=== PATIENT | male | born 2005 | race Two or more races ===

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

== ENCOUNTER 2025-02-01 12:14 | Emergency (ER) | payer OTHER, SELFPAY ==
[2025-02-01 12:43] VITALS: BP 119/77; PULSE 67; RESP 18; TEMP 36.5; O2SAT 96; BMI 40.6
--- NOTE | 2025-02-01 13:01 | XR_ITS ---
Examination: CT abdomen and pelvis without contrast. Coronal 3-D reconstructions. Sagittal 2-D reconstructions. Date and time of exam:February 01, 2025, 1427 hours COMPARISON: January 09, 2025 INDICATIONS: Right-sided flank pain with difficulty urinating beginning this morning, minimal left hydronephrosis 1.6mm distal left ureterovesical junction calculus on CT stone study December 30, 2024 CTDI: vol (mGy): 15 DLP: (mGycm): 1102 Technique: Axial images of the abdomen have been obtained, 3 mm slice thickness Intravenous contrast material has not been administered. Low dose protocols were performed. One or more of the following dose reduction techniques were used; automated exposure control, adjustment of the mA and/or KV according to patient size, use of iterative reconstruction technique. Findings: No focal liver or splenic lesions No gallstones No pancreatic or adrenal mass Bilateral 1 to 2 mm renal calculi Aorta normal size Normal appendix No bowel obstruction No hydronephrosis 1.6 mm calculus now projects in the urinary bladder IMPRESSION: 1. 0.6 mm calculus now projects in the urinary bladder No hydronephrosis
--- NOTE | 2025-02-01 13:01 | PD.EDRME ---
Rapid Medical Screening Exam RME Arrival date/time: 02/01/25 12:14 19-year-old male presents to the Emergency Department today for complaint of right flank pain Chief Complaint: Abdominal Pain Vital signs: Vital Signs Temperature 97.7 F 02/01/25 12:43 Pulse Rate 67 02/01/25 12:43 Respiratory Rate 18 02/01/25 12:43 Blood Pressure 119/77 02/01/25 12:43 Pulse Oximetry (%) 96 02/01/25 12:43 Oxygen Delivery Method Room Air 02/01/25 12:43
[2025-02-01] MEDS: KETOROLAC INJ 30 MG/ML VIAL IM (13:06)
[2025-02-01 13:36] LABS: Collection Type, Urine Clean Catch
[2025-02-01 13:39] LABS: Basophils # (Auto) 0.1 Thou/mm3 (0.0-0.2); Basophils % (Auto) 1 % (0-2.5); Eosinophils # (Auto) 0.0 Thou/mm3 (0.0-0.5); Eosinophils % (Auto) 0 % (0-10); Hematocrit 44.3 % (41.0-53.0); Hemoglobin 14.3 g/dL (13.5-16.0); Immature Granulocytes Auto 0.03 Thou/mm3 (0.00-0.00); Lymphocytes # (Auto) 1.5 Thou/mm3 (1.0-5.0); Lymphocytes % (Auto) 13 % (10-50); Mean Corpuscular HGB Conc 32.3 g/dl (31.0-37.0); Mean Corpuscular Hemoglobin 28.1 pg (25.0-35.0); Mean Corpuscular Volume 87 fL (80-100); Monocytes # (Auto) 0.6 Thou/mm3 (0.0-0.8); Monocytes % (Auto) 5 % (0-12); Neutrophils # (Auto) 9.5 Thou/mm3 (1.8-7.7); Neutrophils % (Auto) 81 % (37-80); Nucleated Red Blood Cell # 0.00 Thou/mm3 (0.00-0.00); Nucleated Red Blood Cell % 0 /100 WBC (0); Platelet Count 243 Thou/mm3 (140-440); RDW Standard Deviation 42.2 fL (35.1-43.9); Red Blood Count 5.09 Miln/mm3 (4.50-5.90); White Blood Count 11.7 Thou/mm3 (4.5-11.0)
[2025-02-01 13:40] LABS: Bilirubin,Urine Negative (Negative); Blood,Urine 3+ (Negative); Clarity,Urine Clear (Clear/Hazy); Color,Urine Yellow (Lt Yel-Yel); Culture Indicated,Urine Not Indicated; Glucose, Urine Negative (Negative); Ketones,Urine Negative (Negative); Leukocyte Esterase,Urine Negative (Negative); Nitrite,Urine Negative (Negative); PH,Urine 6.0 (5.0-7.0); Protein,Urine Trace (Neg - Trace); RBC,Urine 185 /hpf (0-3); Specific Gravity,Urine 1.022 (1.001-1.035); Squamous Epithelial Cell,Urine 1 /hpf (0-5); Urobilinogen,Urine Negative mg/dL (0.0-1.0); WBC,Urine 2 /hpf (0-5)
[2025-02-01 13:57] LABS: Alanine Aminotransferase 40 U/L (10-49); Albumin, Serum 4.8 gm/dL (3.5-5.0); Albumin/Globulin Ratio 2.3 (1.2-2.2); Alkaline Phosphatase 145 U/L (46-116); Anion Gap 8 (7-16); Aspartate Amino Transferase 27 U/L (0-34); BUN/Creatinine Ratio 6 Ratio (12-20); Bilirubin,Total 0.3 mg/dL (0.3-1.2); Blood Urea Nitrogen 7 mg/dL (9-23); Calcium 12.0 mg/dL (8.3-10.6); Calcium (Corrected) 12.0 mg/dL (8.5-10.1); Carbon Dioxide 25.9 mMol/L (20.0-31.0); Chloride 109 mMol/L (98-107); Creatinine (Component) 1.1 mg/dL (0.6-1.3); Estimated Creatinine Clearance 163.2 mL/min (>60); Globulin 2.1 gm/dL (2.3-3.5); Glucose 98 mg/dL (74-106); Lipase 31 U/L (12-53); Osmolality,Calculated 282 (275-295); Potassium 4.7 mMol/L (3.4-5.1); Sodium 143 mMol/L (136-145); Total Protein 6.9 gm/dL (5.7-8.2); eGFR > 60 See Note
--- NOTE | 2025-02-01 14:51 | PD.EDABDPN ---
ED Abdominal Pain RME/HPI General Chief Complaint: Abdominal Pain Stated complaint: R) SIDED ABD PAIN Time seen by provider: 02/01/25 14:50 Arrival date/time: 02/01/25 12:14 19-year-old male presents to the Emergency Department today for complaint of right flank pain Limitations: no limitations RME / HPI RME / HPI narrative: 02/01/25 12:14 19-year-old male presents to the Emergency Department today for complaint of right flank pain Related Data Previous Rx's ?Medication ?Instructions ?Recorded ibuprofen 100 mg/5 mL oral 500 mg (25 mL) PO QID #500 mL 07/05/18 suspension hydrocodone 5 mg-acetaminophen 325 1 tab PO TID #10 tabs 01/27/19 mg tablet ([place]) tamsulosin 0.4 mg capsule (Flomax) 0.4 mg PO QDAY #5 caps 01/27/19 lactulose 10 gram/15 mL (15 mL) 10 g (15 mL) PO BID PRN 07/20/20 oral solution constipation #600 mL ibuprofen 800 mg tablet 800 mg PO TID PRN pain #30 tabs 02/01/25 ondansetron 4 mg disintegrating 4 mg PO Q8H PRN nausea and 02/01/25 tablet vomiting #10 tabs Allergies Allergy/AdvReac Type Severity Reaction Status Date / Time No Known Allergies Allergy Verified 02/01/25 12:16 Review of Systems Review of Systems Systems Reviewed: All systems reviewed, normal except as documented Constitutional Constitutional: Reports system reviewed and no additional complaints, except as documented, Denies fever(s) and Denies headache(s) Eyes Eyes: Reports system reviewed and no additional complaints, except as documented and Denies blurry vision ENT Ears, Nose, Mouth, and Throat: Reports system reviewed and no additional complaints, except as documented, Denies headache(s), Denies nasal congestion and Denies nasal discharge Cardiovascular Cardiovascular: Reports system reviewed and no additional complaints, except as documented, Denies chest pain and Denies dyspnea Respiratory Respiratory: Reports system reviewed and no additional complaints, except as documented, Denies chest congestion, Denies cough and Denies dyspnea Gastrointestinal Gastrointestinal: Reports system reviewed and no additional complaints, except as documented and Reports abdominal pain Integumentary/Breasts Skin/Breast: Reports system reviewed and no additional complaints, except as documented and Denies rash Neurologic Neurologic: Reports system reviewed and no additional complaints, except as documented, Reports as per HPI and Denies headache(s) Past Medical History Past Medical History CARDIAC: Negative Cardiac Disorders or Congestive Heart Failure RESPIRATORY: Negative Chronic Obstructive Pulmonary Disease (COPD) or Asthma GENITOURINARY: Negative Renal Disease ENDOCRINE: Negative Diabetes Mellitus Type 1 or Diabetes Mellitus Type 2 HEMATOLOGIC: Negative Sickle Cell Disease Social History SMOKING STATUS: Never smoker SECOND HAND EXPOSURE: No ED Exam General Limitations: Present no limitations General appearance: Present alert and in no apparent distress Head Head exam: Present atraumatic Eye Eye exam: Present normal appearance, PERRL and EOMI ENT ENT exam: Present normal exam, normal oropharynx and mucous membranes moist Neck Neck exam: Present normal inspection, full ROM and trachea midline Chest Chest inspection: Present normal inspection and symmetric chest wall rise Respiratory Respiratory exam: Present normal lung sounds bilaterally Cardiovascular Cardiovascular exam: Present regular rate, normal rhythm and normal heart sounds Abdominal Exam Abdominal exam: Present soft and normal bowel sounds; Absent distention, tenderness, guarding, rebound or rigidity Extremities Exam Extremities exam: Present normal inspection and full ROM Back Exam Back exam: Present normal inspection and full ROM Neurological Exam Neurological exam: Present alert, oriented X3 and CN II-XII intact Psychiatric Psychiatric exam: Present normal affect and normal mood Skin Skin exam: Present warm, dry, intact and normal color Course Quality Measures none Orders Category Date Time Status CT abdomen pelvis wo con Stat Exams 02/01/25 13:01 Completed CBC Stat Lab 02/01/25 13:15 Completed Comprehensive Metabolic Panel Stat Lab 02/01/25 13:15 Completed Lipase Stat Lab 02/01/25 13:15 Completed UA, C/S IF [Urinalysis, C/S if Indicated] Stat Lab 02/01/25 13:26 Completed Ketorolac Inj [Toradol Inj] Med 02/01/25 13:01 Discontinued 30 mg IM X1 ONE Vital Signs Vital signs: Vital Signs Temperature 97.7 F 02/01/25 12:43 Pulse Rate 67 02/01/25 12:43 Respiratory Rate 18 02/01/25 12:43 Blood Pressure 119/77 02/01/25 12:43 Pulse Oximetry (%) 96 02/01/25 12:43 Oxygen Delivery Method Room Air 02/01/25 12:43 O2 saturation 96 on room air wnl Abdominal Pain MDM MDM Narrative MDM Narrative:: 19-year-old male presents to the Emergency Department today for complaint of right flank pain On exam patient well-appearing patient does not appear toxic no acute distress Lab work and imaging obtained consistent with kidney stone Patient discharged home in no distress to follow-up with primary care doctor in the next 24 to 48 hours and for any worsening symptoms to return to the ER immediately Patient data External records reviewed:: [facility] previous records Clinical information provided by:: patient Social determinants that could affect healthcare access:: none Patient has the following chronic illnesses:: None How is presenting disease/condition affected by chronic disease/condition?: caused by Evaluation data The following diagnostics were reviewed and interpreted by me:: lab results and radiology exam(s) Lab and/or radiology exams considered but not ordered:: Labs radiology obtained Interpretation Summary: Reviewed by me Medications / Prescriptions Medications or Prescriptions considered but not ordered:: Given Medication administrations:: Medication Administration History Discontinued Medications Ketorolac Tromethamine (Ketorolac Inj 30 Mg/Ml Vial) 30 mg IM X1 ONE Stop: 02/01/25 13:02 Last Admin: 02/01/25 13:06 Dose: 30 mg Documented By: OA Given Consultations Consultation(s) initiated? (list below): No Diagnosis Differential diagnosis abdominal pain: abdominal pain, acute appendicitis, pancreatitis and small bowel obstruction Most likely diagnosis given after review of the tests above:: Abdominal pain Admission Indicated Admission indicated?: not indicated Admission Request Was there a request for admission?: No Disposition Plan Disposition Plan: Discharge Discharge Attestation Discharge Attestation: The patient and all family members were given an opportunity to ask questions and understood the discharge instructions. Discharge instructions specifically effects, indications for sooner follow up or return to the emergency department, and the expected course of current diagnosis. Patient condition: Stable Discharge Plan Plan Patient Disposition: HOME (Self Care) Discharge Disposition comment: Stable Prescriptions/Referrals Prescriptions/Med Rec: New ibuprofen 800 mg tablet 800 mg PO TID PRN (Reason: pain) Qty: 30 0RF ondansetron 4 mg tablet,disintegrating 4 mg PO Q8H PRN (Reason: nausea and vomiting) Qty: 10 0RF No Action lactulose 10 gram/15 mL (15 mL) solution 10 g PO BID PRN (Reason: constipation) Qty: 600 0RF ibuprofen 100 mg/5 mL suspension 500 mg PO QID Qty: 500 0RF tamsulosin [Flomax] 0.4 mg capsule 0.4 mg PO QDAY Qty: 5 0RF hydrocodone-acetaminophen [[place]] 5-325 mg tablet 1 tab PO TID MDD 3 tabs Qty: 10 0RF Rx Instructions: NotToExceed APAP: 15 mg/kg OR 1000 mg/dose AND 4000 mg /24 hrs Referrals: Cora Schrader, SENIOR INSPECTOR [Primary Care Provider] - In 1 week Problem List Clinical Impression: Renal colic Patient/Caregiver Discharge Instructions Education Materials: ED Kidney Stone w/ Colic Additional Instructions: Please follow up with your primary care doctor in the next 24-48hrs for any worsening symptoms return here immediately Print Language: Citizen Of [place] Stand Alone Forms: Anjali Award Info., Work/School Release, Patient Portal Info Letter PA/AVIONICS SYSTEMS TECHNICIAN Supervising Physician PA/AVIONICS SYSTEMS TECHNICIAN Supervising Physician: Dr. taveras
== END 2025-02-01 16:57 | disposition home or self-care (01) ==
PROVIDERS: Nurse Practitioner Primary Care; Emergency Provider Emergency Medicine; PCP Nurse Practitioner Family
DX: N23 Unspecified renal colic (principal)
CPT/HCPCS: 36415; 74176; 80053; 81001; 83690; 85025; 96372; 99283; J1885